=== PATIENT | female | born 1945 | race Hispanic/Latino ===

== ENCOUNTER 2019-08-21 10:41 | Day surgery (SDC) | payer MEDICARE ==
[2019-08-21] MEDS ORDERED: PROPOFOL 200 MG/20 ML VIAL IV ONE (10:44)
[2019-08-21] MEDS ORDERED: fentaNYL 100 MCG/2 ML INJ ONE (10:44)
[2019-08-21] MEDS ORDERED: dexAMETHasone 20 MG/5 ML VIAL ONE (10:44)
[2019-08-21] MEDS ORDERED: LIDOCAINE MPF (2%) 20 MG/1 ML VIAL 5 ML ONE (10:44)
[2019-08-21] MEDS ORDERED: ONDANSETRON 4 MG/2 ML INJ ONE (10:44)
[2019-08-21] MEDS ORDERED: ceFAZolin/Water 2 GM/20 ML 2 GM/20 ML SYRINGE IV NR (11:00)
[2019-08-21] MEDS ORDERED: LACTATED RINGERS 1,000 ML IV SCH (11:00)
[2019-08-21] MEDS ORDERED: ONDANSETRON 4 MG/2 ML INJ IV PRN (11:50)
[2019-08-21] MEDS ORDERED: fentaNYL 100 MCG/2 ML INJ IV PRN (11:50)
--- NOTE | 2019-08-21 11:51 | Anesthesia Day of Surgery ---
Anesthesia Day of Surgery - Day of Surgery Patient Examined: Yes Patient H&P Reviewed: Yes Patient is NPO: Yes
--- NOTE | 2019-08-21 11:55 | Anesthesia Consultation ---
Anesthesia Consult and Med Hx Date of service: 08/21/19 - Airway Anesthetic Teeth Evaluation: Dentures, Edentulous ROM Head & Neck: Adequate Mental/Hyoid Distance: Adequate Mallampati Class: Class I Intubation Access Assessment: Good - Pre-Operative Health Status ASA Pre-Surgery Classification: ASA2 Proposed Anesthetic Plan: General - Pulmonary Hx Smoking: No Hx Sleep Apnea: No (CAMILO PRE SCREEN LOW RISK.) - Cardiovascular System Hx Hypertension: Yes (X 3 YRS) - Central Nervous System Hx Back Pain: Yes (FROM STONE) Hx Psychiatric Problems: Yes (Anxiety) - Endocrine Hx Renal Disease: Yes (Stones; had stent placed in May) - Other Systems Hx Cancer: No
[2019-08-21] MEDS ORDERED: MIDAZOLAM 2 MG/2 ML INJ ONE (11:58)
[2019-08-21] MEDS ORDERED: ePHEDrine SULFATE 50 MG/1 ML INJ ONE (12:21)
[2019-08-21] MEDS ORDERED: WATER FOR IRRIG STERILE 2000 ML IR ONE (12:24)
--- NOTE | 2019-08-21 13:40 | Post Operative Note ---
Date of procedure: 08/21/19 Pre-op diagnosis: r ureteral stones Post-op diagnosis: same Findings: 2 large stones Procedure: cysto ureteroscopy laser stent Anesthesia: GETA Surgeon: JERMAN MARTIN Estimated blood loss: none Pathology: list (stones) Specimen disposition: given to patient/family Condition: stable Disposition: PACU
--- NOTE | 2019-08-21 13:41 | Discharge Summary ---
Short Stay Discharge Plan Activity: other (no straining ) Weight Bearing Status: Full Weight Bearing Diet: regular, low fat Special Instructions: other (has stent in fluids ) Durable Medical Equipment Needed Upon Discharge: other (do not pull string !!) Follow up with: ANAYELI FLORES [Primary Care Provider] - 7 Days
--- NOTE | 2019-08-21 13:44 | Operative Report ---
PREOPERATIVE DIAGNOSES: Previous sepsis. Two ureteral stones in the right ureter. POSTOPERATIVE DIAGNOSES: Previous sepsis. Two ureteral stones in the right ureter. PROCEDURE: Cystoscopy, right retrograde, right ureteroscopy, laser and extraction of large stone. SURGEON: Dr. Amos. ANESTHESIA: General. FINDINGS: This is a woman who presented with sepsis and a stent was placed. She now presents for followup. There are two stones in the ureter, hard to see on the x-ray. DESCRIPTION OF PROCEDURE: The patient was brought to the operating room and placed on the operating table. Following induction of anesthesia, placed in lithotomy position, prepped and draped in usual sterile fashion. Cystourethroscopy showed the stent. We tried to get a wire up through the stent, would not go. A wire was placed alongside the stent with an open-ended and the stent was easily withdrawn. At this point, ureteroscopy alongside the wire showed two stones in the mid ureter. They kept trying to move up. We kept bringing them back with a grasper, but we could not get them past the pelvic ureter at the inlet because it was inflamed and narrow. We lasered it into multiple pieces. All the pieces were removed. The patient tolerated the procedure well. Double J coiled in the kidney and bladder, we left the string, brought to recovery in stable condition. JOB# [id number] DAVID/JAILYN
[2019-08-21 13:50] VITALS: BP 130/56
--- NOTE | 2019-08-21 13:58 | Fluoroscopy Report ---
4 fluoroscopic images submitted Indication: Intraoperative localization Impression: 4 images of the abdomen were submitted for documentation purposes with radiology involve ment. Right-sided retrograde pyelography with double-J ureteral stent exchange. Please refer to oper ative note for complete details. Approximately 5 mL of Omnipaque 300 was utilized for this exam. Fluoroscopic time: 1.9 minutes Signer Name: Robbie Prather MD Signed: 08/21/2019 1:54 PM Workstation Name: [id number]
--- NOTE | 2019-08-22 08:43 | Post Anesthesia Evaluation ---
- Post Anesthesia Evaluation Patient Participated: Yes Airway Patent: Yes Stable Respiratory Function: Yes Nausea/Vomiting: No Temp > 96.8F: Yes Pain Manageable: Yes Adequeate Hydration: Yes Anesthesia Complications: No Block Receding Appropriately: Not Applicable Patient on Ventilator: No
== END 2019-08-21 10:42 | disposition home or self-care (01) ==
LOC: OR 10:41
PROVIDERS: ATTEND Urology
DX: N20.1 Calculus of ureter (principal); E78.00 Pure hypercholesterolemia, unspecified; I10 Essential (primary) hypertension; F41.9 Anxiety disorder, unspecified; Z79.899 Other long term (current) drug therapy; Z98.49 Cataract extraction status, unspecified eye; Z98.51 Tubal ligation status; Z87.440 Personal history of urinary (tract) infections; Z98.890 Other specified postprocedural states; Z88.8 Allergy status to other drugs, medicaments and biological substances
CPT/HCPCS: 52356; 74420; A4217; C1758; C1769; C2617; J0690; J1100; J2250; J2405; J2704; J3010; J7120; Q9967